=== PATIENT | female | born 2000 | race African-American/Black ===

== ENCOUNTER 2022-04-07 06:52 | Outpatient (REF) | payer OTHER, SELFPAY ==
[2022-04-07 08:42] LABS: Sickle Cell Scr NEGATIVE (NEGATIVE)
== END 2022-04-07 06:53 | disposition home or self-care (01) ==
LOC: HO.LAB 06:52
PROVIDERS: PCP Nurse Practitioner; Visit Provider Nurse Practitioner
DX: Z13.0 Encounter for screening for diseases of the blood and blood-forming organs and certain disorders involving the immune mechanism (principal); Y93.79 Activity, other specified sports and athletics
CPT/HCPCS: 36415; 85660